=== PATIENT | male | born 1955 | race Caucasian/White ===

== ENCOUNTER 2019-02-03 09:53 | Emergency (ER) | payer MEDICAID ==
[~2019-02-03] VITALS: Ht 165.1 cm; Wt 53.5 kg
[2019-02-03 10:02] VITALS: BP 157/74; PULSE 64; RESP 16; Ht 165.1 cm; Wt 53.5 kg
[2019-02-03] MEDS ORDERED: AMOX1TAB9 PO (10:45)
--- NOTE | 2019-02-03 10:47 | ERD ---
ER Documentation Chief Complaint Chief Complaint BITTEN BY RAT ON RT FOOT THIS MORNING HPI 63-year-old male presents the emergency department complaining of a bite on his right foot. Patient states that a rat bit him on his right foot this morning. He reports no bleeding, numbness, tingling, loss of function. ROS All systems reviewed and are negative except as per history of present illness. Medications Home Meds Active Scripts Amoxicillin/Potassium Clav (Amox-Clav 500-125 mg Tablet) 500-125 mg Tab, 1 TAB PO BID for 7 Days, TAB Prov:JESS TURNER 02/03/19 Physical Exam Vitals Vital Signs Date Temp Pulse Resp B/P (MAP) Pulse Ox O2 O2 Flow FiO2 Time Delivery Rate 02/03/19 98.5 64 16 157/74 100 10:02 (101) Physical Exam General: well developed, well nourished, in no distress. Neuro: Normal speech, gait, balance Skin: Patient has a small abrasion on the skin lateral to the MTP joint of his right large toe. Patient has no evidence of infection. Patient is neurovascular intact. Patient has normal tendon function. Results 24 hrs Current Medications Medications Dose Sig/Nayely Start Time Status Last (Trade) Ordered Route PRN Stop Time Admin Dose Reason Admin Diphtheria/ 0.5 ml ONCE ONCE 02/03/19 Tetanus/Acell IM* 11:00 Pertussis 02/03/19 11:01 (Adacel) Procedures/MDM Patient was taken to a room, seen and examined A tetanus shot was provided Medical decision makin-year-old diabetic presents the emergency department with what might be a bite on his foot. Patient has no evidence of infection at this time and this is a clean wound which barely broke the skin. Patient's tetanus shot was updated. I will be placing him on antibiotics given his uncontrolled nature of his diabetes and the high risk for infection. Overall though, patient appears to be clinically nontoxic and appropriate for discharge. Departure Diagnosis: Primary Impression: Bite by animal Condition: Stable Patient Instructions: Animal Bite, General Additional Instructions: Please see your doctor or return here in 2 days for a wound check. Take your medication and keep your blood sugar under control. JESS TURNER Feb 03, 2019 10:47
[2019-02-03] MEDS ORDERED: DIPHTH/TET/ACEL PERTUSS (ADULT) 0.5 ML VIAL IM* ONE (11:00)
== END 2019-02-03 11:34 | disposition home or self-care (01) ==
LOC: FTE 09:53
DX: S90.811A Abrasion, right foot, initial encounter (principal); W53.11XA Bitten by rat, initial encounter; Y92.9 Unspecified place or not applicable; Z23 Encounter for immunization
CPT/HCPCS: 90471; 90715